=== PATIENT | female | born 1990 | race Caucasian/White ===

== ENCOUNTER 2020-02-07 10:13 | Outpatient (REF) | payer OTHER, SELFPAY ==
[2020-02-07 12:21] LABS: MANUAL DIFF FLAG NO
[2020-02-07 12:31] LABS: Basophils Absolute Auto 0.1 X10*3/uL (0.0-0.2); Basophils Percent Auto 0.5 % (0-2); Eosinophils Absolute Auto 0.1 X10*3/uL (0.0-0.4); Eosinophils Percent Auto 0.6 % (0-4); Hematocrit 33.6 % (37-47); Hemoglobin 10.8 g/dl (12.0-16.0); Imm Gran Abs Auto 0.13 X10*3/uL (0.00-0.03); Imm Gran Pct Auto 1.2 % (0.0-0.4); Lymphocytes Absolute Auto 1.5 X10*3/uL (1.2-4.9); Lymphocytes Percent Auto 13.7 % (20-40); Mean Corpuscular HGB Conc 32.1 g/dl (31.0-35.0); Mean Corpuscular Hemoglobin 29.9 pg (27.0-33.0); Mean Corpuscular Volume 93.1 fL (80-98); Mean Platelet Volume 10.3 fL (9.4-12.3); Monocytes Absolute Auto 0.5 X10*3/uL (0.1-1.2); Monocytes Percent Auto 4.1 % (2-11); Neutrophils Absolute Auto 8.9 X10*3/uL (2.0-8.3); Neutrophils Percent Auto 79.9 % (45-73); Platelet Count 239 X10*3/uL (160-400); Red Blood Count 3.61 X10*6/uL (4.20-5.50); Red Cell Distribution Width 12.9 % (11.0-16.0); White Blood Count 11.1 X10*3/uL (4.8-10.8)
[2020-02-07 12:50] LABS: Glucose 1 Hour PP 50gm Dose 114 mg/dL (60-140)
[2020-02-07 12:59] LABS: Amphetamine Screen Urine Not Detected (Not Detect); Barbiturates, Urine Not Detected (Not Detect); Benzodiazepines Screen Urine Not Detected (Not Detect); Cannabinoid Screen Urine Not Detected (Not Detect); Cocaine Screen Urine Not Detected (Not Detect); Opiate Screen Urine Not Detected (Not Detect); Phencyclidine Screen Urine Not Detected (Not Detect)
[2020-02-08 04:26] LABS: Syphilis Screen Nonreactive (Nonreactive)
== END 2020-02-07 10:14 | disposition home or self-care (01) ==
LOC: HO.LAB 10:13
PROVIDERS: PCP Internal Medicine; Visit Provider Advanced Practice Midwife
DX: Z34.80 Encounter for supervision of other normal pregnancy, unspecified trimester (principal)
CPT/HCPCS: 36415; 80307; 85025; 86780

== ENCOUNTER → 2020-02-13 08:48 | Outpatient (BNVA) | payer OTHER, SELFPAY | PROVIDERS: PCP Internal Medicine; Visit Provider Advanced Practice Midwife | DX: Z34.80 Encounter for supervision of other normal pregnancy, unspecified trimester (principal); Z3A.29 29 weeks gestation of pregnancy; Z23 Encounter for immunization | CPT/HCPCS: 90471; 90715 ==

== ENCOUNTER → 2020-02-27 08:27 | Outpatient (BNVA) | payer OTHER, SELFPAY | PROVIDERS: PCP Internal Medicine; Visit Provider Advanced Practice Midwife | DX: Z76.89 Persons encountering health services in other specified circumstances (principal) ==

== ENCOUNTER → 2020-03-12 08:34 | Outpatient (BNVA) | payer OTHER, SELFPAY | PROVIDERS: Visit Provider Advanced Practice Midwife | DX: Z76.89 Persons encountering health services in other specified circumstances (principal) ==

== ENCOUNTER 2020-03-31 08:44 | Outpatient (REF) | payer OTHER, SELFPAY ==
[2020-04-01 09:42] LABS: BV Int Neg Control Negative (Negative); BV Int Pos Control Positive (Positive)
[2020-04-26 10:05] LABS: CT PCR NOT DETECTED (Not Detect.); NG PCR NOT DETECTED (Not Detect.)
== END 2020-03-31 08:45 | disposition home or self-care (01) ==
LOC: HO.LAB 08:44
PROVIDERS: PCP Internal Medicine; Visit Provider Advanced Practice Midwife
DX: O36.8190 Decreased fetal movements, unspecified trimester, not applicable or unspecified (principal); Z3A.00 Weeks of gestation of pregnancy not specified
CPT/HCPCS: 59025; 81003; 87081; 87480; 87491; 87510; 87591; 87660

== ENCOUNTER 2020-03-31 10:25 | Outpatient (REF) | payer OTHER, SELFPAY ==
--- NOTE | 2020-03-31 10:28 | US_ITS ---
EXAMINATION: US OBSTETRICAL (BIOPHYSICAL PROFILE) CLINICAL INFORMATION: O36.8190 - Decreased movements, unspecified trimester, not applicable or unspecified. Estimated date of delivery 04/28/2020 based on ultrasound measurements 10/26/2019. Gestational age based on earliest ultrasound: 36 weeks 0 days. COMPARISON: Obstetrical ultrasound 12/07/2019, 10/26/2019. TECHNIQUE: Ultrasound of the pelvis is performed. Biophysical profile is performed over 30 minutes with assessment of breathing, gross body movement, tone, and qualitative amniotic fluid volume. Each matrix is scored 0 or 2, depending if the metric is present. Maximum total score possible is 8. Examination is not intended to assess for anomalies. FINDINGS: POSITION: Cephalic PLACENTA: Posterior AMNIOTIC FLUID INDEX: 10.6 cm CARDIAC ACTIVITY: 132 beats per minute BIOPHYSICAL PROFILE: Motion: 2 Tone: 2 Breathin Amniotic Fluid: 2 Total score: 8 US/US OB biophysical profile IMPRESSION: 1. Single intrauterine gestation in cephalic position with posterior placenta. 2. Total biophysical score is 8 (scale 0-8). 3. Amniotic fluid index 10.6 cm. 4. cardiac activity 132 beats per minute.
== END 2020-03-31 10:26 | disposition home or self-care (01) ==
LOC: HO.US 10:25
PROVIDERS: PCP Internal Medicine; Visit Provider Advanced Practice Midwife
DX: O36.8190 Decreased fetal movements, unspecified trimester, not applicable or unspecified (principal); Z3A.36 36 weeks gestation of pregnancy
CPT/HCPCS: 76819

== ENCOUNTER → 2020-04-07 08:21 | Outpatient (BNVA) | payer OTHER, SELFPAY | PROVIDERS: PCP Internal Medicine; Visit Provider Advanced Practice Midwife | DX: Z76.89 Persons encountering health services in other specified circumstances (principal) ==

== ENCOUNTER 2020-04-08 15:20 | Outpatient (REF) | payer OTHER, SELFPAY ==
--- NOTE | 2020-04-08 15:24 | US_ITS ---
EXAMINATION: US OBSTETRICAL FOLLOW UP WITH BIOPHYSICAL PROFILE CLINICAL INFORMATION: Growth. COMPARISON: Ultrasound OB physical 03/31/2020 TECHNIQUE: Real time transabdominal imaging with color and M-mode Doppler. POSITION: Cephalic PLACENTA: Posterior AMNIOTIC FLUID INDEX: 16.3 cm MEASUREMENTS: The initial dating ultrasound dated provided an estimated date of delivery of 04/28/2020. biometric measurements are as follows: Biparietal Diameter: 9.04 cm (36 weeks and 5 days) Occipital Frontal Diameter: 10.12 cm (31 weeks and 3 days) Head Circumference: 33.02 cm (37 weeks and 5 days) Abdominal Circumference: 32.59 cm (36 weeks and 4 days) Femur Length: 7.14 cm (36 weeks and 5 days) The standard deviation for the above measurements is +/- 3 weeks. ESTIMATED WEIGHT: The EFW is 6 lbs 10 oz/2997 gm). This is at the 44 percentile. BIOPHYSICAL PROFILE: Biophysical profile is performed over 30 minutes with assessment of breathing, gross body movement, tone, and qualitative amniotic fluid volume. Each matrix is scored 0 or 2, depending if the metric is present. Maximum total score possible is 8. Motion: 2 Tone: 2 Breathin Amniotic Fluid: 2 Total score: 8 HR: 158 bpm US/US OB follow up IMPRESSION: 1. Single intrauterine gestation in cephalic position with posterior placenta. 2. EFW: 6 pounds and 10 ounces 3. SINDY: 16.3 cm. 4. BPP score: 8 (scale 0-8). 5. Ultrasound gestational age from today's measurements is 37 weeks 0 days. This can correlate with previous ultrasound gestational age of 37 weeks and 1 days.
== END 2020-04-08 15:21 | disposition home or self-care (01) ==
LOC: HO.US 15:20
PROVIDERS: PCP Internal Medicine; Visit Provider Advanced Practice Midwife
DX: O36.5990 Maternal care for other known or suspected poor fetal growth, unspecified trimester, not applicable or unspecified (principal); R10.2 Pelvic and perineal pain
CPT/HCPCS: 76816

== ENCOUNTER 2020-04-14 08:24 | Outpatient (REF) | payer OTHER, SELFPAY ==
[2020-04-16 05:41] LABS: C. trachomatis RNA TMA NOT DETECTED (NOT DETECTED); N. gonorrhoeae RNA TMA NOT DETECTED (NOT DETECTED)
== END 2020-04-14 08:25 | disposition home or self-care (01) ==
LOC: HO.LAB 08:24
PROVIDERS: PCP Internal Medicine; Visit Provider Advanced Practice Midwife
DX: O26.899 Other specified pregnancy related conditions, unspecified trimester (principal); Z67.91 Unspecified blood type, Rh negative; Z20.2 Contact with and (suspected) exposure to infections with a predominantly sexual mode of transmission
CPT/HCPCS: 81003; 86850; 87491; 87591; 96372; 99212

== ENCOUNTER → 2020-04-21 08:38 | Outpatient (BNVA) | payer OTHER, SELFPAY | PROVIDERS: PCP Internal Medicine; Visit Provider Advanced Practice Midwife | DX: O26.893 Other specified pregnancy related conditions, third trimester (principal); N89.8 Other specified noninflammatory disorders of vagina; Z3A.39 39 weeks gestation of pregnancy | CPT/HCPCS: 81003; 99212 ==

== ENCOUNTER 2020-05-20 09:02 | Outpatient (REF) | payer OTHER, SELFPAY ==
[2020-05-20 11:10] LABS: MANUAL DIFF FLAG NO
[2020-05-20 11:16] LABS: Basophils Absolute Auto 0.1 X10*3/uL (0.0-0.2); Basophils Percent Auto 0.9 % (0-2); Eosinophils Absolute Auto 0.1 X10*3/uL (0.0-0.4); Eosinophils Percent Auto 1.5 % (0-4); Hematocrit 40.8 % (37-47); Hemoglobin 13.2 g/dl (12.0-16.0); Imm Gran Abs Auto 0.04 X10*3/uL (0.00-0.03); Imm Gran Pct Auto 0.4 % (0.0-0.4); Lymphocytes Absolute Auto 2.2 X10*3/uL (1.2-4.9); Lymphocytes Percent Auto 23.4 % (20-40); Mean Corpuscular HGB Conc 32.4 g/dl (31.0-35.0); Mean Corpuscular Hemoglobin 28.6 pg (27.0-33.0); Mean Corpuscular Volume 88.3 fL (80-98); Mean Platelet Volume 10.7 fL (9.4-12.3); Monocytes Absolute Auto 0.6 X10*3/uL (0.1-1.2); Monocytes Percent Auto 6.7 % (2-11); Neutrophils Absolute Auto 6.2 X10*3/uL (2.0-8.3); Neutrophils Percent Auto 67.1 % (45-73); Platelet Count 297 X10*3/uL (160-400); Red Blood Count 4.62 X10*6/uL (4.20-5.50); Red Cell Distribution Width 14.6 % (11.0-16.0); White Blood Count 9.3 X10*3/uL (4.8-10.8)
[2020-05-20 11:44] LABS: Alanine Aminotransferase 11 U/L (0-31); Anion Gap 13 (12-20); Aspartate Amino Transferase 14 U/L (5-31); Blood Urea Nitrogen 8 mg/dL (9-16); C Reactive Protein 0.91 mg/dL (< or = 0.50); Calcium 9.3 mg/dL (8.4-10.2); Carbon Dioxide 26 mmol/L (22-29); Chloride 106 mmol/L (96-108); Cholesterol 196 mg/dL; Estimated Glomerular Filt Rate > 60; Glucose Fasting 72 mg/dL (60-99); HDL Cholesterol 46 mg/dL; Iron 94 mcg/dL (30-160); LDL Cholesterol Calculated 111 mg/dl; Percent Iron Saturation 24 % (15-50); Sodium 141 mmol/L (135-145); Total Iron Binding Capacity 385 mcg/dL (228-428); Triglycerides 195 mg/dL; Unsaturated Iron Binding 291 ug/dL
[2020-05-20 11:53] LABS: Rheumatoid Factor < 15.0 IU/mL (<15.0)
[2020-05-20 12:00] LABS: Erythrocyte Sedimentation Rate 5 MM/HR (0-20)
[2020-05-20 12:03] LABS: Ferritin 51 ng/mL (10-122); TSH reflex Free T4 1.21 uIU/mL (0.32-4.0); Vitamin D 25-OH Total 21.4 ng/mL (>30)
[2020-05-21 05:12] LABS: Thyroid Peroxidase Antibodies 3 IU/mL (<9)
[2020-05-22 08:22] LABS: Anti Nuclear Antibody Screen NEGATIVE (NEGATIVE)
== END 2020-05-20 09:03 | disposition home or self-care (01) ==
LOC: HO.HMGCLDS 09:02
PROVIDERS: PCP Internal Medicine; Visit Provider Internal Medicine
DX: O99.019 Anemia complicating pregnancy, unspecified trimester (principal); O26.899 Other specified pregnancy related conditions, unspecified trimester; R12 Heartburn; O16.9 Unspecified maternal hypertension, unspecified trimester; M25.449 Effusion, unspecified hand; Z3A.00 Weeks of gestation of pregnancy not specified; Z83.49 Family history of other endocrine, nutritional and metabolic diseases
CPT/HCPCS: 36415; 80048; 80061; 82306; 82728; 83540; 84443; 84450; 84460; 85025; 85652; 86038; 86039; 86140; 86376; 86431

== ENCOUNTER → 2020-06-06 13:18 | Outpatient (BNVA) | payer OTHER, SELFPAY | PROVIDERS: PCP Internal Medicine; Visit Provider Advanced Practice Midwife | DX: Z39.2 Encounter for routine postpartum follow-up (principal); Z13.31 Encounter for screening for depression | CPT/HCPCS: 99212 ==

== ENCOUNTER → 2020-06-27 08:05 | Outpatient (BNVA) | payer OTHER, SELFPAY | PROVIDERS: PCP Internal Medicine; Visit Provider Obstetrics & Gynecology | DX: Z30.09 Encounter for other general counseling and advice on contraception (principal) | CPT/HCPCS: 99212 ==

== ENCOUNTER → 2020-07-14 11:07 | Outpatient (BNVA) | payer OTHER, SELFPAY | PROVIDERS: Visit Provider Obstetrics & Gynecology | DX: Z30.42 Encounter for surveillance of injectable contraceptive (principal) | CPT/HCPCS: 96372; 99211; J1050 ==

== ENCOUNTER → 2020-08-06 15:30 | Outpatient (BNVA) | payer OTHER, SELFPAY | PROVIDERS: Visit Provider Obstetrics & Gynecology | DX: Z30.09 Encounter for other general counseling and advice on contraception (principal) | CPT/HCPCS: 99212 ==

== ENCOUNTER 2020-08-07 06:04 | Day surgery (SDC) | payer OTHER, SELFPAY ==
[2020-07-31 15:04] VITALS: BMI 27.8
[2020-08-07 06:29] VITALS: BP 111/76; PULSE 81; RESP 16; TEMP 36.4; O2SAT 97
[2020-08-07 06:36] LABS: UPreg QC Valid YES; Urine Pregnancy NEGATIVE (NEGATIVE)
[2020-08-07] MEDS: Lactated Ringers 1,000 ML 20 ML IVCONT (06:40)
--- NOTE | 2020-08-07 07:02 | MHC.SHP ---
Pre-Procedural Eval Section A The patient is an INPATIENT: No Changes since office visit: No Cold of Flu in the past 2 weeks, No New Medical Problems, No Changes in Medication and No Patient answered all questions The History & Physical has been completed within 30 days and I have reviewed it.: Yes Section B Chief Complaint: contraception Allergies: Allergies Allergy/AdvReac Type Severity Reaction Status Date / Time No Known Allergies Allergy Verified 06/27/20 08:14 Plan I have reviewed the history and physical and performed a pertinent physical examination on my patient. No changes have occurred unless specified.
--- NOTE | 2020-08-07 07:03 | W.PM.OPN ---
Operative Note Operative Note Date of Service: 08/07/20 Narrative: Pre-Operative Diagnosis: Unwanted fertility Post-Operative Diagnosis: Unwanted fertility Procedures performed: laparoscopic bilateral tubal ligation Water Safety Teacher: none Specimens: none Disposition: PACU Ms. Vadim Lira is a 29 year old who has completed her family planning and desires a permanent form of sterilization. Surgical Risks: The patient was informed of the risks and benefits of the procedure. Risks included but were not limited to bleeding, infection, injury to the vulva, vagina, or cervix, and uterine perforation. The patient was counseled on the risk of sterilization failure being about 1% on average. The patient was informed that in the event a occurs, the risk of ectopic is increased. The patient expressed understanding of the risks involved, all questions were answered, and the patient consented to the procedure. The patient had valid sterilization consent at the time of the procedure. The patient was taken to the operating room where a time out was performed to confirm correct patient and correct procedure. General anesthesia was established. The patient was then positioned on the operating table in the dorsal lithotomy position with the legs supported using stirrups. All pressure points were padded and a Maria Ines hugger was placed to maintain control of core body temperature. The patient was then prepped and draped in the usual sterile fashion. A red rubber catheter was inserted and 100mL urine obtained. A spongestick was placed in the vagina for uterine manipulation. Attention was turned to the abdomen where a 5mm vertical infraumbilical incision was made. The 5mm trocar was introduced under direct visualization using the laparoscopy within the sleeve of the trocar. After intra-abdominal placement had been confirmed, the trocar was removed leaving the sleeve in place. The camera was introduced and pneumoperitoneum was established using carbon dioxide. Inspection of the abdominal cavity showed no gross abnormalities and there was no evidence of injury to the bowel, bladder, or vasculature. Attention was turned to the pelvis. The patient was placed into Trendelenburg position. The fallopian tubes and ovaries were visualized bilaterally. There were no abnormalities noted. A fibroid was noted on the mid posterior surface of the uterus, measuring approximately 3cm. A small incision was made in the midline approximately 2cm above the pubic symphysis. A 5mm trocar was introduced through this incision under direct visualization with the laparoscope. The fallopian tubes were inspected bilaterally and the fimbriated ends of the fallopian tube were visualized bilaterally. The right fallopian tube and mesosalpinx were grasped and cauterized using Bipolar electrocautery with the Ligasure device. This was done with approximately four mulligan starting medially about 1cm from the cornua and working laterally. Good cautery was confirmed. Attention was then turned to the contralateral fallopian tube and mesosalpinx which was grasped about 1cm from the cornua and cauterized with three mulligan moving laterally with each cauterization. Good fulguration of both tubes was then confirmed. The pneumoperitoneum was then evacuated. The laparoscope was removed and the trocar sleeves were removed. The skin incisions were closed with one interrupted 3-0 Vicryl stitch and Dermabond was then applied. Good hemostasis was confirmed. The patient was transferred to the recovery room in stable condition. All needle, sponge, and instrument counts were noted to be correct x2 at the end of the procedure.
--- NOTE | 2020-08-07 07:05 | P.CONAN_ITS ---
[facility] Active Problems Active Problems: All Active Problems (Updated 07/31/20 @ 15:05 by Anai frey) Encounter for Depo-Provera contraception (Acute) History of anemia (Acute) Finger joint swelling (Acute) Heartburn (Acute) Past Medical History Medical History Cervical cancer screening Finger joint swelling Heartburn History of 2019 novel coronavirus disease (COVID-19) History of anemia Recent childbirth Family History Family History Paternal Grandfather No problems noted. Maternal Grandmother Diabetes mellitus HTN (hypertension) Parkinson disease Thyroid disorder Mother HTN (hypertension) Multinodular thyroid Father Arthritis Brother No problems noted. Sister No problems noted. Paternal Grandmother Diabetes mellitus Arthritis Surgical History Surgical History No history of previous surgery Social History Social History Smoking Status: Former smoker Tobacco Type: Cigarette Years Smoked: 1 Smoking Quit Date: as teen Use of substances other than those prescribed or required for medical reasons: No Have you been hit, kicked, punched, or otherwise hurt by someone within the past year? If so, by whom?: No Advance Directives Information Provided: No Recently lost weight without trying: No Gender identity: female Meds Allergies Allergy/AdvReac Type Severity Reaction Status Date / Time No Known Allergies Allergy Verified 06/27/20 08:14 Active Medications: Current Medications Generic Name Dose Route Start Last Admin Trade Name Macho PRN Reason Stop Dose Admin Lactated Ringer's 1,000 mls @ 20 mls/hr 08/06/20 14:30 08/07/20 06:40 Lr IVCONT 20 mls/hr .Q24H MALAIKA Administration Home Medications Medication Instructions Recorded Confirmed Last Taken Type famotidine 20 mg tablet 20 mg PO BID 02/13/20 07/31/20 Unknown History vitamin with calcium 1 tab PO DAILY 02/13/20 07/31/20 Unknown History no.72-iron 27 mg-folic acid 1 mg tablet Exam Exam Date and Time: August 07, 2020 0705 Height,Weight and Vital Signs: Height 5 ft 7 in Weight 80.739 kg Last Vital Signs Temp 97.5 F 04/22/21 06:29 Pulse 81 08/07/20 06:29 Resp 16 08/07/20 06:29 BP 111/76 08/07/20 06:29 Pulse Ox 97 08/07/20 06:29 Pertinent Lab Results Pertinent Lab Results: Laboratory Tests 08/07/20 06:11 Urine Test NEGATIVE Airway Mallampati Class: II TM Dist: >3cm Neck ROM: Full Assessment and Plan Assessment Anesthesia Assessment: Anesthesia Plan Discussed and Chart Reviewed Final Anesthetic Review NPO: Yes ASA Class: II Final Preanesthetic Review: No Changes in Pt Med Stat, Meds/Allgs Chart Reviewed, Consent Obtained/Reviewed and Anes Risks/Benef Reviewed Patient Risk: Low Procedure Risk: Low Assessment/Block/Sedation in SS: Assess/Block/Sedation-SS Anesthetic Plan Anesthetic Plan: GA Disposition: Standard PACU
[2020-08-07 08:10] VITALS: BP 129/76; PULSE 119; RESP 16; TEMP 36.5; O2SAT 97
[2020-08-07 08:15] VITALS: BP 115/68; PULSE 97; RESP 18; O2SAT 97
[2020-08-07 08:20] VITALS: BP 118/71; PULSE 106; RESP 18; O2SAT 98
[2020-08-07 08:25] VITALS: BP 120/78; PULSE 88; RESP 18; O2SAT 98
[2020-08-07 08:44] VITALS: BP 119/75; PULSE 78; RESP 18; TEMP 36.2; O2SAT 100
== END 2020-08-07 09:23 | disposition home or self-care (01) ==
LOC: HO.SSS 06:04
PROVIDERS: PCP Internal Medicine; Visit Provider Obstetrics & Gynecology
PROC: (CPT 58670; principal; 2020-08-07 07:30)
DX: Z30.2 Encounter for sterilization (principal); Z86.16 Personal history of COVID-19
CPT/HCPCS: 58670; 81025; J0131; J1100; J1885; J2250; J2405; J3010

== ENCOUNTER → 2020-08-20 11:15 | Outpatient (BNVA) | payer OTHER, SELFPAY | PROVIDERS: PCP Internal Medicine; Visit Provider Obstetrics & Gynecology ==